=== PATIENT | female | born 1955 | race Caucasian/White ===

== ENCOUNTER 2023-01-18 18:58 | Observation (INO) ==
--- NOTE | 2023-01-18 19:39 | Emergency Department Note ---
History of Present Illness General Chief complaint: Fall Stated complaint: FALL,BRUISED RIB,HIT HEAD,WRIST PAIN Time Seen by Provider: 01/18/23 19:16 History of Present Illness Maximum Pain Intensity: 3 This is a 67-year-old female that presents to the emergency department via private vehicle with complaints of "fall, left anterior rib pain, struck head". The patient notes that earlier today she was at the [employer] football game. She was descending a flight of steps that were wet. She also believes her left boot shoestring was untied. She tripped and fell and then struck a hand rail and then struck her occipital region of the head against cement. She questions if perhaps she lost consciousness for a few seconds. She notes a headache and left anterior rib pain since that time. No vomiting. No vision change. The patient denies any chest pain or abdominal pain. No shortness of breath. Current pain 06/14. Patient denies any anticoagulant use. No aspirin use. She did take acetaminophen earlier today following the fall for pain. Home Medications Medication Instructions Recorded Confirmed Type buspirone 10 mg tablet 10 mg PO TID 01/19/23 01/19/23 History calcium citrate 315 mg 1 tab PO DAILY 01/19/23 01/19/23 History calcium-vitamin D3 6.25 mcg (250 unit) tablet (Citracal + Vitamin D Maximum) cholecalciferol (vitamin D3) 25 0 mcg PO DAILY 01/19/23 01/19/23 History mcg (1,000 unit) capsule (Vitamin D3) citalopram 40 mg tablet 40 mg PO DAILY 01/19/23 01/19/23 History clobetasol 0.05 % topical foam 1 applic topical DIRECTED PRN 01/19/23 01/19/23 History flare ups glucosamine 750 vr-[id number] 1 tab PO BID 01/19/23 01/19/23 History no1 644 mg-C 30 mg-rebeka 1 mg tablet (Osteo Bi-Flex Triple Strength) ketoconazole 2 % shampoo 1 applic topical 2XWK 01/19/23 01/19/23 History levothyroxine 88 mcg tablet 88 mcg PO DAILY 01/19/23 01/19/23 History (Synthroid) tacrolimus 0.03 % topical ointment 1 applic topical DIRECTED 01/19/23 01/19/23 History venlafaxine 75 mg capsule,extended 75 mg PO DAILY 01/19/23 01/19/23 History release 24 hr Allergies Allergy/AdvReac Type Severity Reaction Status Date / Time belladonna alkaloids AdvReac Dilates Verified 01/19/23 00:13 pupils Past Med/Surg History Medical History Anxiety Depression Hypothyroidism Surgical History Hx of appendectomy Hx of bilateral breast reduction surgery Hx of blepharoplasty Hx of sinus surgery Social History Smoking Status: Never smoker Hx Alcohol Use: Yes Alcohol type: wine Hx Substance Use: No Preferred Language: Ukrainian Communication Ability: Effective Beliefs That Will Affect Care: None Current Living Situation: Spouse Other Information That Helps Us Care for You: No Feels Safe at Home: Yes Assistive Devices: None Review of Systems A total of 10 systems reviewed and were otherwise negative Physical Exam Vital Signs Vital Signs - 24 hr 01/18/23 19:00 01/18/23 19:35 01/18/23 21:00 Temperature 35.8 C L Temperature Source Oral Pulse Rate 81 Pulse Rate [Right Finger] Pulse Rate from SpO2 Sensor Pulse Rhythm [Right Finger] Pulse Strength [Right Finger] Respiratory Rate 18 20 Respiratory Effort / Characteristics Non-Labored Non-Labored Respiratory Depth Normal Normal Normal Respiratory Pattern Regular Regular Blood Pressure 143/87 H Blood Pressure [Right Arm] Blood Pressure Mean 105 Blood Pressure Mean [Right Arm] Blood Pressure Position [Right Arm] Pulse Oximetry 96 100 Oxygen Delivery Method Room Air Room Air Room Air Sepsis Recent Fever Within 48 Hours No Sepsis New/Unexplained Change in Mental Status N/A Sepsis Action Taken by Nursing No Action Required 01/18/23 22:18 01/18/23 22:34 01/19/23 00:00 Temperature 36.6 C Temperature Source Oral Pulse Rate 75 Pulse Rate [Right Finger] 70 64 Pulse Rate from SpO2 Sensor Pulse Rhythm [Right Finger] Regular Pulse Strength [Right Finger] Normal Respiratory Rate 18 20 Respiratory Effort / Characteristics Non-Labored Spontaneous Respiratory Depth Normal Respiratory Pattern Regular Blood Pressure Blood Pressure [Right Arm] 130/80 132/73 Blood Pressure Mean Blood Pressure Mean [Right Arm] 96 92 Blood Pressure Position [Right Arm] Sitting Pulse Oximetry 98 97 Oxygen Delivery Method Room Air Room Air Sepsis Recent Fever Within 48 Hours Sepsis New/Unexplained Change in Mental Status Sepsis Action Taken by Nursing 01/18/23 22:33 01/18/23 22:40 01/18/23 22:50 Temperature Temperature Source Pulse Rate 69 74 69 Pulse Rate [Right Finger] Pulse Rate from SpO2 Sensor 69 74 69 Pulse Rhythm [Right Finger] Pulse Strength [Right Finger] Respiratory Rate 23 18 15 Respiratory Effort / Characteristics Respiratory Depth Respiratory Pattern Blood Pressure Blood Pressure [Right Arm] Blood Pressure Mean Blood Pressure Mean [Right Arm] Blood Pressure Position [Right Arm] Pulse Oximetry 97 98 96 Oxygen Delivery Method Sepsis Recent Fever Within 48 Hours Sepsis New/Unexplained Change in Mental Status Sepsis Action Taken by Nursing 01/18/23 23:00 01/18/23 23:00 01/18/23 23:10 Temperature Temperature Source Pulse Rate 72 73 Pulse Rate [Right Finger] Pulse Rate from SpO2 Sensor 72 73 Pulse Rhythm [Right Finger] Pulse Strength [Right Finger] Respiratory Rate 16 12 Respiratory Effort / Characteristics Respiratory Depth Respiratory Pattern Blood Pressure 128/81 Blood Pressure [Right Arm] Blood Pressure Mean 92 Blood Pressure Mean [Right Arm] Blood Pressure Position [Right Arm] Pulse Oximetry 96 97 Oxygen Delivery Method Sepsis Recent Fever Within 48 Hours Sepsis New/Unexplained Change in Mental Status Sepsis Action Taken by Nursing 01/18/23 23:20 01/18/23 23:30 01/18/23 23:30 Temperature Temperature Source Pulse Rate 75 81 Pulse Rate [Right Finger] Pulse Rate from SpO2 Sensor 74 78 Pulse Rhythm [Right Finger] Pulse Strength [Right Finger] Respiratory Rate 16 13 Respiratory Effort / Characteristics Respiratory Depth Respiratory Pattern Blood Pressure 129/70 Blood Pressure [Right Arm] Blood Pressure Mean 87 Blood Pressure Mean [Right Arm] Blood Pressure Position [Right Arm] Pulse Oximetry 96 94 Oxygen Delivery Method Sepsis Recent Fever Within 48 Hours Sepsis New/Unexplained Change in Mental Status Sepsis Action Taken by Nursing 01/18/23 23:40 01/18/23 23:50 01/19/23 00:00 Temperature Temperature Source Pulse Rate 78 65 Pulse Rate [Right Finger] Pulse Rate from SpO2 Sensor 77 65 Pulse Rhythm [Right Finger] Pulse Strength [Right Finger] Respiratory Rate 20 16 Respiratory Effort / Characteristics Respiratory Depth Respiratory Pattern Blood Pressure 132/73 Blood Pressure [Right Arm] Blood Pressure Mean 92 Blood Pressure Mean [Right Arm] Blood Pressure Position [Right Arm] Pulse Oximetry 98 96 Oxygen Delivery Method Sepsis Recent Fever Within 48 Hours Sepsis New/Unexplained Change in Mental Status Sepsis Action Taken by Nursing 01/19/23 00:00 01/19/23 00:10 01/19/23 00:20 Temperature Temperature Source Pulse Rate 60 68 66 Pulse Rate [Right Finger] Pulse Rate from SpO2 Sensor 61 68 66 Pulse Rhythm [Right Finger] Pulse Strength [Right Finger] Respiratory Rate 15 19 14 Respiratory Effort / Characteristics Respiratory Depth Respiratory Pattern Blood Pressure Blood Pressure [Right Arm] Blood Pressure Mean Blood Pressure Mean [Right Arm] Blood Pressure Position [Right Arm] Pulse Oximetry 95 95 96 Oxygen Delivery Method Sepsis Recent Fever Within 48 Hours Sepsis New/Unexplained Change in Mental Status Sepsis Action Taken by Nursing 01/19/23 00:30 01/19/23 00:30 01/19/23 00:40 Temperature Temperature Source Pulse Rate 66 71 Pulse Rate [Right Finger] Pulse Rate from SpO2 Sensor 65 71 Pulse Rhythm [Right Finger] Pulse Strength [Right Finger] Respiratory Rate 17 15 Respiratory Effort / Characteristics Respiratory Depth Respiratory Pattern Blood Pressure 113/73 Blood Pressure [Right Arm] Blood Pressure Mean 79 Blood Pressure Mean [Right Arm] Blood Pressure Position [Right Arm] Pulse Oximetry 96 95 Oxygen Delivery Method Sepsis Recent Fever Within 48 Hours Sepsis New/Unexplained Change in Mental Status Sepsis Action Taken by Nursing 01/19/23 00:52 01/19/23 01:00 01/19/23 01:00 Temperature Temperature Source Pulse Rate 82 65 Pulse Rate [Right Finger] Pulse Rate from SpO2 Sensor 82 64 Pulse Rhythm [Right Finger] Pulse Strength [Right Finger] Respiratory Rate 16 13 Respiratory Effort / Characteristics Respiratory Depth Respiratory Pattern Blood Pressure 117/81 Blood Pressure [Right Arm] Blood Pressure Mean 84 Blood Pressure Mean [Right Arm] Blood Pressure Position [Right Arm] Pulse Oximetry 95 96 Oxygen Delivery Method Sepsis Recent Fever Within 48 Hours Sepsis New/Unexplained Change in Mental Status Sepsis Action Taken by Nursing 01/19/23 01:10 01/19/23 01:20 01/19/23 01:30 Temperature Temperature Source Pulse Rate 68 Pulse Rate [Right Finger] Pulse Rate from SpO2 Sensor 68 77 Pulse Rhythm [Right Finger] Pulse Strength [Right Finger] Respiratory Rate 17 Respiratory Effort / Characteristics Respiratory Depth Respiratory Pattern Blood Pressure 133/81 Blood Pressure [Right Arm] Blood Pressure Mean 102 Blood Pressure Mean [Right Arm] Blood Pressure Position [Right Arm] Pulse Oximetry 96 97 Oxygen Delivery Method Sepsis Recent Fever Within 48 Hours Sepsis New/Unexplained Change in Mental Status Sepsis Action Taken by Nursing 01/19/23 01:30 Temperature Temperature Source Pulse Rate Pulse Rate [Right Finger] Pulse Rate from SpO2 Sensor 71 Pulse Rhythm [Right Finger] Pulse Strength [Right Finger] Respiratory Rate Respiratory Effort / Characteristics Respiratory Depth Respiratory Pattern Blood Pressure Blood Pressure [Right Arm] Blood Pressure Mean Blood Pressure Mean [Right Arm] Blood Pressure Position [Right Arm] Pulse Oximetry 95 Oxygen Delivery Method Sepsis Recent Fever Within 48 Hours Sepsis New/Unexplained Change in Mental Status Sepsis Action Taken by Nursing VITAL SIGNS - Vital signs and nursing notes were reviewed. Stable. GENERAL - 67-year-old female appearing her stated age. Communicates well with provider and answers questions appropriately. SKIN - Gross examination of the entire body surface demonstrates no lacerations to the body surface. HEAD - Normocephalic. No Palafox's Sign or Raccoon's Eyes. No depressed skull fractures palpable. EYES - PERRL with EOMI bilaterally. Without subconjunctival hemorrhage. Palpebral conjunctiva pink and moist with no injection. EARS - No deformities of external structures noted on gross examination bilaterally. No hemotympanum present. No tympanic perforation noted. Handle of malleus, umbo, cone of light, pars tensa/flaccid all easily visualized. NOSE - Midline and without cyanosis. No epistaxis or clear watery discharge noted. Septum midline without deviation. No septal hematoma noted. No overlying ecchymosis noted. MOUTH/OROPHARYNX - Without perioral cyanosis. Tongue midline with equal elevation of palate bilaterally. No blood noted in the oropharynx. No tonsillar hypertrophy, erythema, or exudates noted. No dental fractures noted. NECK - No tenderness to palpation over the cervical spinous processes. No cervical paraspinal muscle tenderness noted. LUNGS - Chest wall symmetric without accessory muscle use, intercostals ret ractions, or central cyanosis. No flail chest or depressed fractures noted. No paradoxical chest wall movements noted. L anterior rib TTP noted. Normal vesicular breath sounds CTA B/L. No wheezes, rales, or rhonchi appreciated. CARDIAC - RRR with S1/S2. No murmur, rubs, or gallops appreciated. ABDOMEN - Abdominal contour normal and without pulsations or visible masses. BS normoactive all four quadrants. No rebound tenderness or guarding noted. Negative [place]'s or Moise Fowler's Signs. No tenderness, palpable masses, hepatosplenomegaly, or ascites noted. EXTREMITIES - No gross deformities noted of the extremities. No tenderness to palpation upper or lower extremities. +5/5 strength noted in UE/LE bilaterally. NEUROLOGIC - Cranial nerves II through XII grossly intact. PSYCH - A&O, and cooperates fully with examiner. Pt is very pleasant and interacts well with examiner. Course Administered Medications Discontinued Medications Acetaminophen (Acetaminophen 325 Mg Tab) 650 mg PO NOW STA Stop: 01/19/23 01:44 Last Admin: 01/19/23 02:10 Dose: 650 mg Documented By: PEPPER Acetaminophen (Acetaminophen 325 Mg Tab) 650 mg PO Q4H PRN PRN Reason: Pain or Fever Stop: 02/18/23 04:13 Last Admin: 01/19/23 07:36 Dose: 650 mg Documented By: AGATA Buspirone HCl (Buspirone 5 Mg Tab) 10 mg PO TID BHARAT Stop: 02/18/23 08:59 Last Admin: 01/19/23 09:12 Dose: 10 mg Documented By: AGATA Calcium/Vitamin D (Calcium 600mg + Vit D 400 Iu Tab) 1 tab PO DAILY BHARAT Stop: 02/18/23 08:59 Last Admin: 01/19/23 09:12 Dose: 1 tab Documented By: AGATA Citalopram Hydrobromide (Citalopram 40 Mg Tab) 40 mg PO DAILY BHARAT Stop: 02/18/23 08:59 Last Admin: 01/19/23 09:30 Dose: Not Given Documented By: AGATA Fluticasone Propionate (Fluticasone Propionate Na Spr 16 Gm Btl) 1 sprays NA NOW STA Stop: 01/19/23 01:06 Last Admin: 01/19/23 01:41 Dose: 1 sprays Documented By: PEPPER Sodium Chloride (Nss) 1,000 mls @ 80 mls/hr IV .[id number] BHARAT Stop: 01/19/23 16:43 Last Admin: 01/19/23 04:42 Dose: 80 mls/hr Documented By: HERIBERTO Levothyroxine Sodium (Levothyroxine Sodium 88 Mcg Tablet) 88 mcg PO DAILYBB BHARAT Stop: 02/18/23 06:29 Last Admin: 01/19/23 07:33 Dose: 88 mcg Documented By: AGATA Venlafaxine HCl (Venlafaxine Hcl Xr 75 Mg Capxr) 75 mg PO DAILY BHARAT Stop: 02/18/23 08:59 Last Admin: 01/19/23 09:12 Dose: 75 mg Documented By: AGATA Medical Decision Making Laboratory Data 01/18/23 22:20 01/18/23 22:20 Lab Results 01/18/23 01/18/23 01/18/23 Range/Units 22:20 22:20 22:20 WBC 6.93 (4.8-10.8) K/ul RBC 4.34 (4.20-5.40) M/uL Hgb 13.2 (12.0-16.0) g/dl Hct 39.0 (37.0-47.0) % MCV 89.9 (80.0-100.0) fL MCH 30.4 (25.0-34.0) pg MCHC 33.8 (32.0-36.0) g/dL RDW Std Deviation 39.4 (36.4-46.3) fL RDW Coeff of [place] 12.0 (11.5-14.5) % Plt Count 288 (130-400) K/uL MPV 10.1 (9.4-12.4) fL Immature Gran % (Auto) 0.3 % Neut % (Auto) 71.7 % Lymph % (Auto) 16.5 % [place] % (Auto) 8.7 % Eos % (Auto) 2.5 % Baso % (Auto) 0.3 % Neut # (Auto) 4.98 (1.40-6.50) K/uL Lymph # (Auto) 1.14 L (1.20-3.40) K/uL [place] # (Auto) 0.60 H (0.11-0.59) K/uL Eos # (Auto) 0.17 (0.00-0.50) K/uL Baso # (Auto) 0.02 (0.00-0.20) K/uL Immature Gran # (Auto) 0.02 (0.01-0.20) K/uL PT 10.8 (9.0-12.0) Seconds INR 1.0 (0.9-1.1) APTT 27.8 (21.0-31.0) Seconds PTT Ratio 1.0 Sodium 140 (136-145) mmol/L Potassium 4.2 (3.5-5.1) mmol/L Chloride 104 (98-107) mmol/L Carbon Dioxide 30 (21-32) mmol/L Anion Gap 6 (3-11) BUN 22 (6-23) mg/dl Creatinine 1.01 (0.6-1.2) mg/dl Est Cr Clr Drug Dosing 52.6 ml/min Est GFR ( Amer) 66.7 ml/min Est GFR (Non-Af Amer) 57.6 ml/min BUN/Creatinine Ratio 21.8 H (10-20) Glucose 91 (70-99(Fasting)) mg/dl Calcium 10.2 (8.6-10.3) mg/dl Total Bilirubin 0.4 (0.2-1.0) mg/dl AST 18 (13-39) U/L ALT 11 (7-52) U/L Alkaline Phosphatase 72 (34-104) U/L Total Protein 6.8 (6.0-8.3) gm/dl Albumin 4.3 (3.4-5.0) gm/dl Globulin 2.5 (2.5-4.0) gm/dl Albumin/Globulin Ratio 1.7 (0.9-2) Imaging Data Radiologist's Impression: Cervical Spine CT 01/18/23 19:34 Exam(s): CT C SPINE EXAM: CT Cervical Spine Without Intravenous Contrast CLINICAL HISTORY: Reason for exam: fall, struck head. TECHNIQUE: Axial computed tomography images of the cervical spine without intravenous contrast. CTDI is 23.87 mGy and DLP is 474.64 mGy-cm. Automated exposure control was utilized for the study. A dose lowering technique was utilized adhering to the principles of ALARA. COMPARISON: No relevant prior studies available. FINDINGS: The vertebral body heights are maintained. The craniocervical junction is intact. The atlanto-dens interval is maintained. The dens is intact. There is no spondylolisthesis. Multilevel cervical spondylosis and degenerative disc disease. Straightening of the cervical lordosis. The unenhanced neck soft tissues are grossly unremarkable. The visualized lung apices are grossly clear. IMPRESSION: No acute fracture or subluxation of the cervical spine. Electronically signed by: Isidoro Rincon MD 01/18/23 21:[address] 01/18/23 19:34 CR Exam(s): CT HEAD Without Contrast EXAM: CT Head Without Intravenous Contrast CLINICAL HISTORY: Reason for exam: fall, struck head. TECHNIQUE: Axial computed tomography images of the head/brain without intravenous contrast. CTDI is 35.65 mGy and DLP is 624.41 mGy-cm. Automated exposure control was utilized for the study. A dose lowering technique was utilized adhering to the principles of ALARA. COMPARISON: No relevant prior studies available. FINDINGS: Trace subdural blood along the anterior falx, measuring approximately 3 mm. The territorial josé-white matter differentiation is maintained throughout. Age-related cerebral volume loss. Periventricular and subcortical white matter hypoattenuation, consistent with chronic microangiopathy. The visualized orbits appear grossly unremarkable. The calvarium is intact. The visualized paranasal sinuses and mastoid air cells are grossly clear. IMPRESSION: Trace subdural blood along the anterior falx, measuring approximately 3 mm. Communications: Call Doctor Other Electronically signed by: Isidoro Rincon MD 01/18/23 21:44 PM Ribs w/Chest X-Ray 01/18/23 19:34 XR ribs LT min 2V w [id number] CLINICAL HISTORY: Fall, L anterior/lateral rib pain TECHNIQUE: 3 views of the left ribs were obtained. Single frontal view of the chest was obtained. Comparison: None available at the time of this dictation. FINDINGS: No fractures are seen. The chest wall and soft tissues are normal. No lines and tubes are seen. The cardiomediastinal silhouette is normal. The lungs are clear. No evidence of pleural effusion or pneumothorax. Degenerative changes are seen with S-shaped scoliosis partially visualized. IMPRESSION: No evidence of acute fracture or other acute abnormalities in the visualized portions of the chest. ACT 112: Negative or not required by law. Electronically signed by: Rafita Munson M.D. 01/18/2023 8:[address] 01/18/23 20:14 Exam(s): CT CHEST Without Contrast EXAM: CT Chest Without Intravenous Contrast CLINICAL HISTORY: Reason for exam: Fall, Left anterior inferior rib pain. TECHNIQUE: Axial computed tomography images of the chest without intravenous contrast. CTDI is 23.87 mGy and DLP is 474.64 mGy-cm. Automated exposure control was utilized for the study. A dose lowering technique was utilized adhering to the principles of ALARA. COMPARISON: No relevant prior studies available. FINDINGS: Lungs: Unremarkable. No mass. No consolidation. Pleural space: Unremarkable. No pneumothorax. No significant effusion. Heart: Unremarkable. No cardiomegaly. No significant pericardial effusion. No significant coronary artery calcifications. Bones/joints: Unremarkable. No acute fracture. No dislocation. Soft tissues: Unremarkable. Vasculature: Unremarkable. No thoracic aortic aneurysm. Lymph nodes: Unremarkable. No enlarged lymph nodes. Other findings: Nonobstructed calculi in the LEFT upper pole, partially included in the [id number]. IMPRESSION: No acute findings in the chest. Electronically signed by: Isidoro Rincon MD 01/18/23 21:52 PM MDM Narrative Patient was seen and evaluated as above in room D03a. Review was performed of triage nursing notes and vital signs. No previous visits for review in the EMR at time of evaluation. After obtaining a thorough history and physical examination the above work up was performed. Patient presents to us today status post fall down steps while at [facility] during the [employer] football game. She believes she slipped on the wet steps and also because the shoelace on the left boot was untied. She notes that she fell and struck the occipital region of the head against cement. She questions perhaps brief loss of consciousness. No anticoagulant use. No antiplatelet use. No aspirin use. The patient has had a headache since then and some left anterior rib pain. She notes a history of recent left rib injury a few weeks ago and this seemed to have aggravated the left rib pain. Options of care were discussed with the patient. CT imaging of the head, neck were obtained as well as chest x-ray with rib series. Rib series without definitive fracture. Chest CT added. CT head reveals what appears to be trace subdural blood along the anterior falx, measuring approximately 3 mm. The radiologist did call me regarding these findings. This may be artifactual but in the setting of trauma, at this time we will proceed with management as if it were a true finding. We do not have neurosurgery here at our facility therefore contacted [facility]. 10:20pm: I spoke with both neurosurgery and trauma surgery at [facility] via conference phone call. I spoke with Dr. Monaco (neurosurgery) and Dr. Cole (Trauma). We discussed plan of care. We discussed keeping the patient here and repeating a head CT versus transfer down to their facility for repeat head CT and monitoring. I did ask our radiology service to forward the imaging to the life image radiology service to be viewed at [facility] however it appears in talking with the specialists at [facility], they were not able to see the images. Neurosurgery was comfortable with the plan of watching the patient and repeating the head CT here but did have trauma weigh in on the decision as well. Dr. Cole from trauma did offer to have the patient down at his facility for assessment but noted that if we are comfortable here it would be ultimately our decision if we want to watch the patient here vs transfer. Keppra x7 days was also recommended. I presented these options and recommendations to the patient. The patient would prefer to stay here at this facility which I believe is reasonable. In addition, in discussing the keppra, the patient would like to hold off on Keppra at this time pending repeat imaging which I also believe is reasonable. Furthermore, I did speak with the hospitalist (Dr. Tyler) regarding the case and he did asked that I speak to neurology at our facility first. I then spoke to Dr. Paige of neurology at 11:32 PM on 01/18/2023. We will proceed with hospitalist admission here, repeat head CT, watch the patient/clinically trend symptoms and if she worsens she will be transferred to tertiary care. Dr. Tyler then talked to the [facility] ospitalist service here and they will now admit the patient here for continuity of care. I then spoke to Dr. Davis who with the [facility] hospitalist service regarding the case. Please refer to further documentation regarding her stay. Patient did ask for fluticasone nasal spray which was added. GCS: 15 In the evaluation and treatment of this patient the following differential diagnoses were entertained: Acute intracranial hemorrhage, skull fracture, contusion, C-spine fracture, rib fracture, pneumothorax, hemothorax, among others Impression & Plan Fall, Subdural hematoma, Headache, Rib pain on left side Discharge Plan Visit Data Chief Complaint: Fall Stated Complaint: FALL,BRUISED RIB,HIT HEAD,WRIST PAIN ED Provider: Manuel Ortiz ED Midlevel Provider: Luis Eduardo Reeves Discharge Problem: Fall, Subdural hematoma, Headache, Rib pain on left side Patient Disposition: Admitted As Inpatient Condition: Good Discharge Instructions Interventions: ED Discharge Assessment Last Done: 01/19/23 03:53
--- NOTE | 2023-01-18 20:08 | Emergency Department Note ---
ED Visit Note I was consulted by the Advanced Practice Provider. I discussed the case and the patient's complaints at length with the ERNESTO. CT imaging of the head, chest and neck have been ordered. Results currently pending. .
--- NOTE | 2023-01-18 20:17 | XRay Report ---
XR ribs LT min 2V w CXR1V CLINICAL HISTORY: Fall, L anterior/lateral rib pain TECHNIQUE: 3 views of the left ribs were obtained. Single frontal view of the chest was obtained. Comparison: None available at the time of this dictation. FINDINGS: No fractures are seen. The chest wall and soft tissues are normal. No lines and tubes are seen. The cardiomediastinal silhouette is normal. The lungs are clear. No evid ence of pleural effusion or pneumothorax. Degenerative changes are seen with S-shaped scoliosis parti ally visualized. IMPRESSION: No evidence of acute fracture or other acute abnormalities in the visualized portions of the chest. ACT 112: Negative or not required by law. Electronically signed by: Rafita Munson M.D. 01/18/2023 8:16 PM
--- NOTE | 2023-01-18 21:44 | CT Scan Report ---
Exam(s): CT C SPINE EXAM: CT Cervical Spine Without Intravenous Contrast CLINICAL HISTORY: Reason for exam: fall, struck head. TECHNIQUE: Axial computed tomography images of the cervical spine without intravenous contrast. CTDI is 23.87 mGy and DLP is 474.64 mGy-cm. Automated exposure control was utilized for the study. A dose lowering technique was utilized adhering to the principles of ALARA. COMPARISON: No relevant prior studies available. FINDINGS: The vertebral body heights are maintained. The craniocervical junction is intact. The atlanto-dens interval is maintained. The dens is intact. There is no spondylolisthesis. Multilevel cervical spondylosis and degenerative disc disease. Straightening of the cervical lordosis. The unenhanced neck soft tissues are grossly unremarkable. The visualized lung apices are grossly clear. IMPRESSION: No acute fracture or subluxation of the cervical spine. Electronically signed by: Isidoro Rincon MD 01/18/23 21:42 PM
--- NOTE | 2023-01-18 21:45 | CT Scan Report ---
Exam(s): CT HEAD Without Contrast EXAM: CT Head Without Intravenous Contrast CLINICAL HISTORY: Reason for exam: fall, struck head. TECHNIQUE: Axial computed tomography images of the head/brain without intravenous contrast. CTDI is 35.65 mGy and DLP is 624.41 mGy-cm. Automated exposure control was utilized for the study. A dose lowering technique was utilized adhering to the principles of ALARA. COMPARISON: No relevant prior studies available. FINDINGS: Trace subdural blood along the anterior falx, measuring approximately 3 mm. The territorial josé-white matter differentiation is maintained throughout. Age-related cerebral volume loss. Periventricular and subcortical white matter hypoattenuation, consistent with chronic microangiopathy. The visualized orbits appear grossly unremarkable. The calvarium is intact. The visualized paranasal sinuses and mastoid air cells are grossly clear. IMPRESSION: Trace subdural blood along the anterior falx, measuring approximately 3 mm. Communications: Call Doctor Other Electronically signed by: Isidoro Rincon MD 01/18/23 21:44 PM
--- NOTE | 2023-01-18 21:54 | CT Scan Report ---
Exam(s): CT CHEST Without Contrast EXAM: CT Chest Without Intravenous Contrast CLINICAL HISTORY: Reason for exam: Fall, Left anterior inferior rib pain. TECHNIQUE: Axial computed tomography images of the chest without intravenous contrast. CTDI is 23.87 mGy and DLP is 474.64 mGy-cm. Automated exposure control was utilized for the study. A dose lowering technique was utilized adhering to the principles of ALARA. COMPARISON: No relevant prior studies available. FINDINGS: Lungs: Unremarkable. No mass. No consolidation. Pleural space: Unremarkable. No pneumothorax. No significant effusion. Heart: Unremarkable. No cardiomegaly. No significant pericardial effusion. No significant coronary artery calcifications. Bones/joints: Unremarkable. No acute fracture. No dislocation. Soft tissues: Unremarkable. Vasculature: Unremarkable. No thoracic aortic aneurysm. Lymph nodes: Unremarkable. No enlarged lymph nodes. Other findings: Nonobstructed calculi in the LEFT upper pole, partially included in the [id number]. IMPRESSION: No acute findings in the chest. Electronically signed by: Isidoro Rincon MD 01/18/23 21:52 PM
[2023-01-18 22:39] LABS: Basophils # (auto) 0.02 K/uL (0.00-0.20); Basophils % (auto) 0.3 %; Eosinophils # (auto) 0.17 K/uL (0.00-0.50); Eosinophils % (auto) 2.5 %; Hemoglobin 13.2 g/dl (12.0-16.0); Immature Granulocytes # (auto) 0.02 K/uL (0.01-0.20); Immature Granulocytes % (auto) 0.3 %; Lymphocytes # (auto) 1.14 K/uL (1.20-3.40); Lymphocytes % (auto) 16.5 %; Mean Corpuscular Hemoglobin 30.4 pg (25.0-34.0); Mean Corpuscular Hgb Conc 33.8 g/dL (32.0-36.0); Mean Corpuscular Volume 89.9 fL (80.0-100.0); Mean Platelet Volume 10.1 fL (9.4-12.4); Monocytes % (auto) 8.7 %; Neutrophils # (auto) 4.98 K/uL (1.40-6.50); Neutrophils % (auto) 71.7 %; Platelet Count 288 K/uL (130-400); RDW Standard Deviation 39.4 fL (36.4-46.3); Red Blood Count 4.34 M/uL (4.20-5.40); White Blood Count 6.93 K/ul (4.8-10.8)
[2023-01-18 22:50] LABS: Albumin Globulin Ratio 1.7 (0.9-2); Albumin Level 4.3 gm/dl (3.4-5.0); BUN Creatinine Ratio 21.8 (10-20); Bilirubin,Total 0.4 mg/dl (0.2-1.0); Calcium 10.2 mg/dl (8.6-10.3); Creatinine Clr Calc Pharmacy 52.6 ml/min; Est GFR (African American) 66.7 ml/min; Est GFR (Non-African American) 57.6 ml/min; Globulin 2.5 gm/dl (2.5-4.0); Potassium 4.2 mmol/L (3.5-5.1); Total Protein 6.8 gm/dl (6.0-8.3)
[2023-01-18 23:06] LABS: Partial Thromboplastin Time 27.8 Seconds (21.0-31.0); Prothrombin Time 10.8 Seconds (9.0-12.0)
[2023-01-19] MEDS ORDERED: FLUTICASONE PROPIONATE NA SPR 16 GM BTL STA (01:05)
[2023-01-19] MEDS ORDERED: ACETAMINOPHEN 325 MG TAB PO STA (01:43)
--- NOTE | 2023-01-19 01:53 | History & Physical Report ---
Date of Service January 19, 2023 Assessment & Plan (1) Subdural hematoma: Plan: 67-year-old female with past medical significant for hypothyroidism, osteoarthritis, depression and anxiety sleep apnea and uses dental device visiting [place] for football match comes because of fall and found to have subdural hematoma. Fall Subdural hematoma CT head: Trace subdural blood along the anterior falx, measuring approximately 3 mm. ER spoke with neurosurgery at [place] and also trauma center [place] and and finally decided to be observed here We will follow repeat CT head in a.m. Hemodynamically stable Not on anticoagulations [place] recommended Keppra 500 twice daily for 1 week but patient want to wait until repeat CT head in a.m. Monitor in telemetry floor History of anxiety depression Continue home medication Hypothyroidism On Synthyroid DVT prophylax SCDs Disposition admit telemetry floor Full code History of Present Illness Chief Complaint: Fall and subdural hematoma Primary Care Provider: NO PCP 67-year-old female with past medical significant for hypothyroidism, osteo arthritis, depression and anxiety and sleep apnea and uses dental device visiting [place] for football match comes because of fall and found to have subdural hematoma. It seems it was wet and she slipped on the steps hit the rail and seem to hit concrete the back of the head.Patient thinks probably she might lost conscious for 2 to 3 seconds. She was able to walk in the parking lot and drove here. The headache is coming back. No blurred visions. No dizziness. No nausea vomiting. No cough. No recent fevers. Has right lower rib pains. No shortness of breath. No abdominal pain. Normal bowel and bladder movements. Past medical history as mentioned above. Past surgical history. Sinus surgery. Chin lift surgery. Breast reduction surgery. Appendectomy, knee gel shots for osteoarthritis, and spinal shots. Social history. . No smoking. Alcohol occasional. Family history. Mother and father had high blood pressure high cholesterol and diabetes. Mother of lung cancer. Father had heart disease Allergies Allergy/AdvReac Type Severity Reaction Status Date / Time belladonna alkaloids AdvReac Dilates Verified 01/19/23 00:13 pupils Home Medications Medication Instructions Recorded Confirmed Type buspirone 10 mg tablet 10 mg PO TID 01/19/23 01/19/23 History calcium citrate 315 mg 1 tab PO DAILY 01/19/23 01/19/23 History calcium-vitamin D3 6.25 mcg (250 unit) tablet (Citracal + Vitamin D Maximum) cholecalciferol (vitamin D3) 25 0 mcg PO DAILY 01/19/23 01/19/23 History mcg (1,000 unit) capsule (Vitamin D3) citalopram 40 mg tablet 40 mg PO DAILY 01/19/23 01/19/23 History clobetasol 0.05 % topical foam 1 applic topical DIRECTED PRN 01/19/23 01/19/23 History flare ups glucosamine 750 cj-[id number]-[id number] 1 tab PO BID 01/19/23 01/19/23 History no1 644 mg-C 30 mg-rebeka 1 mg tablet (Osteo Bi-Flex Triple Strength) ketoconazole 2 % shampoo 1 applic topical 2XWK 01/19/23 01/19/23 History levothyroxine 88 mcg tablet 88 mcg PO DAILY 01/19/23 01/19/23 History (Synthroid) tacrolimus 0.03 % topical ointment 1 applic topical DIRECTED 01/19/23 01/19/23 History venlafaxine 75 mg capsule,extended 75 mg PO DAILY 01/19/23 01/19/23 History release 24 hr Past Med/Surg History Medical History Anxiety Depression Hypothyroidism Surgical History Hx of appendectomy Hx of bilateral breast reduction surgery Hx of blepharoplasty Hx of sinus surgery Social History Smoking Status: Never smoker Hx Alcohol Use: Yes Alcohol type: wine Hx Substance Use: No Preferred Language: German Communication Ability: Effective Beliefs That Will Affect Care: None Current Living Situation: Spouse Other Information That Helps Us Care for You: No Feels Safe at Home: Yes Assistive Devices: None Review of Systems Review of Systems: All systems reviewed & are unremarkable except as noted in HPI & below Physical Exam Physical Exam: General- Not in distress. Head- atraumatic Eyes- PERRL. ENT- oropharynx clear Neck- supple, no JVD, Lungs- clear to auscultation no wheezing or crackles Heart- regular rhythm; no murmur, no gallop, Abdomen- normal bowel sounds, soft, nontender, no distension. Extremities- no pretibial edema, no erythema Neuro- alert, oriented x 3; PERRL, EOMI; no facial palsy; no dysarthria; motor 5/5 bilaterally; Skin- warm & dry Results & Data Results & Data Vital Signs (Past 12 Hours) Vital Signs Temp Pulse Pulse Resp BP BP Pulse Ox 01/19/23 00:00 64 20 132/73 97 01/18/23 22:34 75 01/18/23 22:18 36.6 C 70 18 130/80 98 01/18/23 21:00 20 100 01/18/23 19:35 01/18/23 19:00 35.8 C L 81 18 143/87 H 96 O2 Del Method 01/19/23 00:00 Room Air 01/18/23 22:34 01/18/23 22:18 Room Air 01/18/23 21:00 Room Air 01/18/23 19:35 Room Air 01/18/23 19:00 Room Air Diagnostic Findings Laboratory Results WBC 6.93 K/ul (4.8-10.8) 01/18/23 22:20 RBC 4.34 M/uL (4.20-5.40) 01/18/23 22:20 Hgb 13.2 g/dl (12.0-16.0) 01/18/23 22:20 Hct 39.0 % (37.0-47.0) 01/18/23 22:20 MCV 89.9 fL (80.0-100.0) 01/18/23 22:20 MCH 30.4 pg (25.0-34.0) 01/18/23 22:20 MCHC 33.8 g/dL (32.0-36.0) 01/18/23 22:20 RDW Std Deviation 39.4 fL (36.4-46.3) 01/18/23 22:20 RDW Coeff of [place] 12.0 % (11.5-14.5) 01/18/23 22:20 Plt Count 288 K/uL (130-400) 01/18/23 22:20 MPV 10.1 fL (9.4-12.4) 01/18/23 22:20 Immature Gran % (Auto) 0.3 % 01/18/23 22:20 Neut % (Auto) 71.7 % 01/18/23 22:20 Lymph % (Auto) 16.5 % 01/18/23 22:20 [place] % (Auto) 8.7 % 01/18/23 22:20 Eos % (Auto) 2.5 % 01/18/23 22:20 Baso % (Auto) 0.3 % 01/18/23 22:20 Neut # (Auto) 4.98 K/uL (1.40-6.50) 01/18/23 22:20 Lymph # (Auto) 1.14 K/uL (1.20-3.40) L 01/18/23 22:20 [place] # (Auto) 0.60 K/uL (0.11-0.59) H 01/18/23 22:20 Eos # (Auto) 0.17 K/uL (0.00-0.50) 01/18/23 22:20 Baso # (Auto) 0.02 K/uL (0.00-0.20) 01/18/23 22:20 Immature Gran # (Auto) 0.02 K/uL (0.01-0.20) 01/18/23 22:20 PT 10.8 Seconds (9.0-12.0) 01/18/23 22:20 INR 1.0 (0.9-1.1) 01/18/23 22:20 APTT 27.8 Seconds (21.0-31.0) 01/18/23 22:20 PTT Ratio 1.0 01/18/23 22:20 Sodium 140 mmol/L (136-145) 01/18/23 22:20 Potassium 4.2 mmol/L (3.5-5.1) 01/18/23 22:20 Chloride 104 mmol/L (98-107) 01/18/23 22:20 Carbon Dioxide 30 mmol/L (21-32) 01/18/23 22:20 Anion Gap 6 (3-11) 01/18/23 22:20 BUN 22 mg/dl (6-23) 01/18/23 22:20 Creatinine 1.01 mg/dl (0.6-1.2) 01/18/23 22:20 Est Cr Clr Drug Dosing 52.6 ml/min 01/18/23 22:20 Est GFR ( Amer) 66.7 ml/min 01/18/23 22:20 Est GFR (Non-Af Amer) 57.6 ml/min 01/18/23 22:20 BUN/Creatinine Ratio 21.8 (10-20) H 01/18/23 22:20 Glucose 91 mg/dl (70-99(Fasting)) 01/18/23 22:20 Calcium 10.2 mg/dl (8.6-10.3) 01/18/23 22:20 Total Bilirubin 0.4 mg/dl (0.2-1.0) 01/18/23 22:20 AST 18 U/L (13-39) 01/18/23 22:20 ALT 11 U/L (7-52) 01/18/23 22:20 Alkaline Phosphatase 72 U/L (34-104) 01/18/23 22:20 Total Protein 6.8 gm/dl (6.0-8.3) 01/18/23 22:20 Albumin 4.3 gm/dl (3.4-5.0) 01/18/23 22:20 Globulin 2.5 gm/dl (2.5-4.0) 01/18/23 22:20 Albumin/Globulin Ratio 1.7 (0.9-2) 01/18/23 22:[address] 01/18/23 19:34 Exam(s): CT C SPINE EXAM: CT Cervical Spine Without Intravenous Contrast CLINICAL HISTORY: Reason for exam: fall, struck head. TECHNIQUE: Axial computed tomography images of the cervical spine without intravenous contrast. CTDI is 23.87 mGy and DLP is 474.64 mGy-cm. Automated exposure control was utilized for the study. A dose lowering technique was utilized adhering to the principles of ALARA. COMPARISON: No relevant prior studies available. FINDINGS: The vertebral body heights are maintained. The craniocervical junction is intact. The atlanto-dens interval is maintained. The dens is intact. There is no spondylolisthesis. Multilevel cervical spondylosis and degenerative disc disease. Straightening of the cervical lordosis. The unenhanced neck soft tissues are grossly unremarkable. The visualized lung apices are grossly clear. IMPRESSION: No acute fracture or subluxation of the cervical spine. Electronically signed by: Isidoro Rincon MD 01/18/23 21:[address] 01/18/23 19:34 CR Exam(s): CT HEAD Without Contrast EXAM: CT Head Without Intravenous Contrast CLINICAL HISTORY: Reason for exam: fall, struck head. TECHNIQUE: Axial computed tomography images of the head/brain without intravenous contrast. CTDI is 35.65 mGy and DLP is 624.41 mGy-cm. Automated exposure control was utilized for the study. A dose lowering technique was utilized adhering to the principles of ALARA. COMPARISON: No relevant prior studies available. FINDINGS: Trace subdural blood along the anterior falx, measuring approximately 3 mm. The territorial josé-white matter differentiation is maintained throughout. Age-related cerebral volume loss. Periventricular and subcortical white matter hypoattenuation, consistent with chronic microangiopathy. The visualized orbits appear grossly unremarkable. The calvarium is intact. The visualized paranasal sinuses and mastoid air cells are grossly clear. IMPRESSION: Trace subdural blood along the anterior falx, measuring approximately 3 mm. Communications: Call Doctor Other Electronically signed by: Isidoro Rincon MD 01/18/23 21:44 PM Ribs w/Chest X-Ray 01/18/23 19:34 XR ribs LT min 2V w CXR1V CLINICAL HISTORY: Fall, L anterior/lateral rib pain TECHNIQUE: 3 views of the left ribs were obtained. Single frontal view of the chest was obtained. Comparison: None available at the time of this dictation. FINDINGS: No fractures are seen. The chest wall and soft tissues are normal. No lines and tubes are seen. The cardiomediastinal silhouette is normal. The lungs are clear. No evidence of pleural effusion or pneumothorax. Degenerative changes are seen with S-shaped scoliosis partially visualized. IMPRESSION: No evidence of acute fracture or other acute abnormalities in the visualized portions of the chest. ACT 112: Negative or not required by law. Electronically signed by: Rafita Munson M.D. 01/18/2023 8:[address] 01/18/23 20:14 Exam(s): CT CHEST Without Contrast EXAM: CT Chest Without Intravenous Contrast CLINICAL HISTORY: Reason for exam: Fall, Left anterior inferior rib pain. TECHNIQUE: Axial computed tomography images of the chest without intravenous contrast. CTDI is 23.87 mGy and DLP is 474.64 mGy-cm. Automated exposure control was utilized for the study. A dose lowering technique was utilized adhering to the principles of ALARA. COMPARISON: No relevant prior studies available. FINDINGS: Lungs: Unremarkable. No mass. No consolidation. Pleural space: Unremarkable. No pneumothorax. No significant effusion. Heart: Unremarkable. No cardiomegaly. No significant pericardial effusion. No significant coronary artery calcifications. Bones/joints: Unremarkable. No acute fracture. No dislocation. Soft tissues: Unremarkable. Vasculature: Unremarkable. No thoracic aortic aneurysm. Lymph nodes: Unremarkable. No enlarged lymph nodes. Other findings: Nonobstructed calculi in the LEFT upper pole, partially included in the [id number]. IMPRESSION: No acute findings in the chest. Electronically signed by: Isidoro Rincon MD 01/18/23 21:52 PM Code Status & VTE Plan VTE Prophylaxis Plan VTE Prophylaxis will be ordered: Yes
[2023-01-19] MEDS ORDERED: POLYETHYLENE (MIRALAX) 17 GM PACK PO PRN (04:14)
[2023-01-19] MEDS ORDERED: SODIUM CHLORIDE 0.9% 1,000 ML IV SCH (04:14)
[2023-01-19] MEDS ORDERED: ACETAMINOPHEN 325 MG TAB PO PRN (04:14)
[2023-01-19] MEDS ORDERED: NITROGLYCERIN SL 0.4 MG/TAB TAB SL PRN (04:14)
[2023-01-19] MEDS ORDERED: LEVOTHYROXINE SODIUM 88 MCG TABLET PO SCH (06:30)
[2023-01-19 06:45] LABS: Basophils # (auto) 0.02 K/uL (0.00-0.20); Basophils % (auto) 0.5 %; Eosinophils # (auto) 0.19 K/uL (0.00-0.50); Eosinophils % (auto) 4.4 %; Hematocrit (blood only) 34.5 % (37.0-47.0); Hemoglobin 11.7 g/dl (12.0-16.0); Immature Granulocytes # (auto) 0.01 K/uL (0.01-0.20); Immature Granulocytes % (auto) 0.2 %; Lymphocytes # (auto) 1.01 K/uL (1.20-3.40); Lymphocytes % (auto) 23.2 %; Mean Corpuscular Hemoglobin 30.6 pg (25.0-34.0); Mean Corpuscular Hgb Conc 33.9 g/dL (32.0-36.0); Mean Corpuscular Volume 90.3 fL (80.0-100.0); Monocytes # (auto) 0.56 K/uL (0.11-0.59); Monocytes % (auto) 12.8 %; Neutrophils # (auto) 2.57 K/uL (1.40-6.50); Neutrophils % (auto) 58.9 %; Platelet Count 238 K/uL (130-400); RDW Standard Deviation 39.6 fL (36.4-46.3); Red Blood Count 3.82 M/uL (4.20-5.40); White Blood Count 4.36 K/ul (4.8-10.8)
[2023-01-19 06:59] LABS: BUN Creatinine Ratio 22.2 (10-20); Calcium 9.2 mg/dl (8.6-10.3); Est GFR (African American) 76.7 ml/min; Est GFR (Non-African American) 66.2 ml/min; Magnesium 1.9 mg/dl (1.7-2.4)
--- NOTE | 2023-01-19 08:28 | CT Scan Report ---
CT head/brain wo con CLINICAL HISTORY: subdural hematoma Technique: Contiguous axial CT images of the head were acquired from the base of the skull to the carolin sylvain without intravenous contrast administration. Images were viewed in brain, subdural and bone [facility]. Automated dose lowering techniques and/or adjustment according to patient size were utilized for this exam. Comparison: Comparison is made to CT head 01/18/2023 Findings: Thickening of the anterior falx is unchanged from prior exam, measuring approximately 3 mm. Apparent hyperdensity in the base of the anterior right frontal lobe may represent volume averaging, similar t o prior exam. No new hemorrhage is seen. Imaged portions of the paranasal sinuses and mastoid air cells are clear. The orbits appear normal. There are no acute fractures of the calvaria or scalp swelling. Impression: Interval stability of subdural hemorrhage anterior falx without evidence of new hemorrhage. ACT 112: Negative or not required by law. Electronically signed by: Rafita Munson M.D. 01/19/2023 8:25 AM
[2023-01-19] MEDS ORDERED: VENLAFAXINE HCL XR 75 MG CAPXR PO SCH (09:00)
[2023-01-19] MEDS ORDERED: CALCIUM 600MG + VIT D 400 IU TAB PO SCH (09:00)
[2023-01-19] MEDS ORDERED: NON-FORMULARY MEDICATION (Glucosam-Chon-Msm1-C-Mang-Bosw [Osteo Bi-Flex Triple Strength] 7 PO SCH (09:00)
[2023-01-19] MEDS ORDERED: busPIRone 5 MG TAB PO SCH (09:00)
[2023-01-19] MEDS: CITALOPRAM 40 MG TAB PO SCH ×2 (09:12→09:30)
--- NOTE | 2023-01-19 10:19 | Neurology Consultation ---
Date of Consultation January 19, 2023 Assessment & Plan (1) Subdural hematoma, post-traumatic: No indication for further intervention at this time. Recommend follow up w/ outpatient Neurosurgery with plan for repeat CTH in 1-2 weeks. Please repeat CTH STAT for any acute changes in mentation or new focal neurologic deficits. (2) Fall: Recommend PT/OT evaluation to evaluate for gait instability and potential vestibular dysfunction related to fall and head trauma. Telehealth Consultation Telehealth Information Telehealth Information: I performed this visit using a real-time telehealth connection between my location and the patients location ([facility]). After connecting through interactive tele-video, patient was identified by name and date of and/or wristband check.Patient (or authorized healthcare human resources hr representative) was informed that this was a telemedicine visit and it was being conducted confidentially over secure lines. My office door was closed and no one else was present in the room with me.Patient (or authorized healthcare human resources hr representative) provided consent to proceed with the visit, expressed an understanding of privacy and security of the telemedicine visit, and gave permission to have a hospital human resources hr representative in the room in order to assist with the visit and to conduct portions of the visit, as needed. I informed the patient (or authorized healthcare human resources hr representative) that I reviewed their record and presented the opportunity for them to ask any questions regarding the visit today. The patient agreed to participate. History of Present Illness Reason for Consultation: Subdural Hematoma Attending Physician: Robert Bowers MD History of Present Illness Heidi Conrad is a 67 year old woman with pmx as below presenting with fall. Patient recounts descending a row of bleachers and believes she tripped and tumbled down the last three steps, hitting her head. Patient is unclear if she lost consciousness, but would be cleared by the on-field physician but recommended to drive to the ED for a trauma evaluation. Patient presently denies any focal neurologic deficits, and while she does endorse a headache in the top of the head, she feels that this is being well-treated with Tylenol. She has been in her usual state of health, and denies any palpitations, chest pain, dyspnea, or episodes of lightheadedness. At baseline, patient does not rely on a mechanical assist device, though does endorse some balance issues related to chronic knee pain. Allergies Allergy/AdvReac Type Severity Reaction Status Date / Time belladonna alkaloids AdvReac Dilates Verified 01/19/23 00:13 pupils Home Medications Medication Instructions Recorded Confirmed Type buspirone 10 mg tablet 10 mg PO TID 01/19/23 01/19/23 History calcium citrate 315 mg 1 tab PO DAILY 01/19/23 01/19/23 History calcium-vitamin D3 6.25 mcg (250 unit) tablet (Citracal + Vitamin D Maximum) cholecalciferol (vitamin D3) 25 0 mcg PO DAILY 01/19/23 01/19/23 History mcg (1,000 unit) capsule (Vitamin D3) citalopram 40 mg tablet 40 mg PO DAILY 01/19/23 01/19/23 History clobetasol 0.05 % topical foam 1 applic topical DIRECTED PRN 01/19/23 01/19/23 History flare ups glucosamine 750 gh-cxonfqewsnk-[id number] 1 tab PO BID 01/19/23 01/19/23 History no1 644 mg-C 30 mg-rebeka 1 mg tablet (Osteo Bi-Flex Triple Strength) ketoconazole 2 % shampoo 1 applic topical 2XWK 01/19/23 01/19/23 History levothyroxine 88 mcg tablet 88 mcg PO DAILY 01/19/23 01/19/23 History (Synthroid) tacrolimus 0.03 % topical ointment 1 applic topical DIRECTED 01/19/23 01/19/23 History venlafaxine 75 mg capsule,extended 75 mg PO DAILY 01/19/23 01/19/23 History release 24 hr Patient History Medical History Anxiety Depression Hypothyroidism Surgical History Hx of appendectomy Hx of bilateral breast reduction surgery Hx of blepharoplasty Hx of sinus surgery Social History Smoking Status: Never smoker Hx Alcohol Use: Yes Alcohol type: wine Hx Substance Use: No Preferred Language: Khmer Communication Ability: Effective Beliefs That Will Affect Care: None Current Living Situation: Spouse Other Information That Helps Us Care for You: No Feels Safe at Home: Yes Assistive Devices: None Review of Systems ROS negative unless stated in HPI above See HPI for pertinent positives & negatives. All negative aside from those noted in HPI Physical Exam AAOx3. Expressive and receptive language skills intact. Endorses "shaking" sensation on left gaze. No facial droop. Oculomotor function intact. No motor drift. No dysmetria with finger to nose. No subjective paresthesia Results & Data Vital Signs (Past 12 Hours) Vital Signs Temp Pulse Pulse Resp BP BP Pulse Ox 01/19/23 07:30 01/19/23 07:30 36.5 C 63 16 98/70 L 96 01/19/23 07:11 79 01/19/23 06:02 78 19 108/65 97 01/19/23 02:33 62 01/19/23 02:10 96 01/19/23 02:00 95 01/19/23 02:00 108/69 01/19/23 01:50 95 01/19/23 01:43 94 01/19/23 01:30 95 01/19/23 01:30 133/81 01/19/23 01:20 97 01/19/23 01:10 68 17 96 01/19/23 01:00 65 13 96 01/19/23 01:00 117/81 01/19/23 00:52 82 16 95 01/19/23 00:40 71 15 95 01/19/23 00:30 66 17 96 01/19/23 00:30 113/73 01/19/23 00:20 66 14 96 01/19/23 00:10 68 19 95 01/19/23 00:00 60 15 95 01/19/23 00:00 132/73 01/18/23 23:50 65 16 96 01/18/23 23:40 78 20 98 01/18/23 23:30 81 13 94 01/18/23 23:30 129/70 01/18/23 23:20 75 16 96 01/18/23 23:10 73 12 97 01/18/23 23:00 72 16 96 01/18/23 23:00 128/81 01/18/23 22:50 69 15 96 01/18/23 22:40 74 18 98 01/18/23 22:33 69 23 97 01/19/23 00:00 64 20 132/73 97 01/18/23 22:34 75 01/18/23 22:18 36.6 C 70 18 130/80 98 Pulse Ox O2 Del Method O2 Del Method 01/19/23 07:30 96 Room Air 01/19/23 07:30 Room Air 01/19/23 07:11 01/19/23 06:02 Room Air 01/19/23 02:33 01/19/23 02:10 01/19/23 02:00 01/19/23 02:00 01/19/23 01:50 01/19/23 01:43 01/19/23 01:30 01/19/23 01:30 01/19/23 01:20 01/19/23 01:10 01/19/23 01:00 01/19/23 01:00 01/19/23 00:52 01/19/23 00:40 01/19/23 00:30 01/19/23 00:30 01/19/23 00:20 01/19/23 00:10 01/19/23 00:00 01/19/23 00:00 01/18/23 23:50 01/18/23 23:40 01/18/23 23:30 01/18/23 23:30 01/18/23 23:20 01/18/23 23:10 01/18/23 23:00 01/18/23 23:00 01/18/23 22:50 01/18/23 22:40 01/18/23 22:33 01/19/23 00:00 Room Air 01/18/23 22:34 01/18/23 22:18 Room Air Diagnostic Findings Per my personal review, serial CT Head studies show a trace area of hyperintensity along the anterior falx, potentially representing subdural hematoma. In the context of clinical picture, traumatic SDH cannot be entirely ruled out.
--- NOTE | 2023-01-19 10:55 | Discharge Summary ---
Date of Service January 19, 2023 Admission HPI Per Admitting Provider 67-year-old female with past medical significant for hypothyroidism, osteoarthritis, depression and anxiety and sleep apnea and uses dental device visiting [place] for football match comes because of fall and found to have subdural hematoma. It seems it was wet and she slipped on the steps hit the rail and seem to hit concrete the back of the head.Patient thinks probably she might lost conscious for 2 to 3 seconds. She was able to walk in the parking lot and drove here. The headache is coming back. No blurred visions. No dizziness. No nausea vomiting. No cough. No recent fevers. Has right lo wer rib pains. No shortness of breath. No abdominal pain. Normal bowel and bladder movements. Past medical history as mentioned above. Past surgical history. Sinus surgery. Chin lift surgery. Breast reduction surgery. Appendectomy, knee gel shots for osteoarthritis, and spinal shots. Social history. . No smoking. Alcohol occasional. Family history. Mother and father had high blood pressure high cholesterol and diabetes. Mother of lung cancer. Father had heart disease Admission Exam Per Admitting Provider General- Not in distress. Head- atraumatic Eyes- PERRL. ENT- oropharynx clear Neck- supple, no JVD, Lungs- clear to auscultation no wheezing or crackles Heart- regular rhythm; no murmur, no gallop, Abdomen- normal bowel sounds, soft, nontender, no distension. Extremities- no pretibial edema, no erythema Neuro- alert, oriented x 3; PERRL, EOMI; no facial palsy; no dysarthria; motor 5/5 bilaterally; Skin- warm & dry Principal Diagnosis Fall, subdural hematoma Discharge Exam General- WD/WN F in NAD Head- atraumatic Eyes- PERRL. ENT- oropharynx clear Neck- supple, no JVD, Lungs- clear to auscultation no wheezing or crackles Heart- regular rhythm; no murmur, no gallop, Abdomen- normal bowel sounds, soft, nontender, no distension. Extremities- no pretibial edema, no erythema Neuro- alert, oriented x 3; PERRL, EOMI; no facial palsy; no dysarthria; motor 5/5 bilaterally;moves extremities Skin- warm & dry Discharge Data Allergies Allergy/AdvReac Type Severity Reaction Status Date / Time belladonna alkaloids AdvReac Dilates Verified 01/19/23 00:13 pupils Consultations 01/18/23 22:53 ED Decision to Admit Stat 01/19/23 00:23 ED Decision to Admit Stat 01/19/23 08:00 Consult Neurology Routine Ordered Studies 01/18/23 19:34 CT cervical spine wo con Stat FINDINGS: The vertebral body heights are maintained. The craniocervical junction is intact. The atlanto-dens interval is maintained. The dens is intact. There is no spondylolisthesis. Multilevel cervical spondylosis and degenerative disc disease. Straightening of the cervical lordosis. The unenhanced neck soft tissues are grossly unremarkable. The visualized lung apices are grossly clear. IMPRESSION: No acute fracture or subluxation of the cervical spine. CT head/brain wo con Stat FINDINGS: Trace subdural blood along the anterior falx, measuring approximately 3 mm. The territorial josé-white matter differentiation is maintained throughout. Age-related cerebral volume loss. Periventricular and subcortical white matter hypoattenuation, consistent with chronic microangiopathy. The visualized orbits appear grossly unremarkable. The calvarium is intact. The visualized paranasal sinuses and mastoid air cells are grossly clear. IMPRESSION: Trace subdural blood along the anterior falx, measuring approximately 3 mm. 01/18/23 20:14 CT chest diagnostic wo con Stat COMPARISON: No relevant prior studies available. FINDINGS: Lungs: Unremarkable. No mass. No consolidation. Pleural space: Unremarkable. No pneumothorax. No significant effusion. Heart: Unremarkable. No cardiomegaly. No significant pericardial effusion. No significant coronary artery calcifications. Bones/joints: Unremarkable. No acute fracture. No dislocation. Soft tissues: Unremarkable. Vasculature: Unremarkable. No thoracic aortic aneurysm. Lymph nodes: Unremarkable. No enlarged lymph nodes. Other findings: Nonobstructed calculi in the LEFT upper pole, partially included in the [id number]. IMPRESSION: No acute findings in the chest. 01/19/23 08:00 CT head/brain wo con Urgent Findings: Thickening of the anterior falx is unchanged from prior exam, measuring approximately 3 mm. Apparent hyperdensity in the base of the anterior right frontal lobe may represent volume averaging, similar to prior exam. No new hemorrhage is seen. Imaged portions of the paranasal sinuses and mastoid air cells are clear. The orbits appear normal. There are no acute fractures of the calvaria or scalp swelling. Impression: Interval stability of subdural hemorrhage anterior falx without evidence of new hemorrhage. Hospital Course (1) Subdural hematoma: 67-year-old female with past medical significant for hypothyroidism, osteoarthritis, depression and anxiety sleep apnea and uses dental device visiting [place] for football match comes because of fall and found to have subdural hematoma. Fall Subdural hematoma CT head: Trace subdural blood along the anterior falx, measuring approximately 3 mm. ER spoke with neurosurgery at [facility] and also trauma center [facility] and and finally decided to be observed here Repeated CT head this a.m. - unchanged/ stable, no progression Not on anticoagulations [facility] recommended Keppra 500 twice daily for 1 week but patient want to wait until repeat CT head. Monitor in telemetry floor 01/19 - Pt reports having headache, however otherwise denies any complaints. No blurry vision, no change in speech, swallowing, no numbness or weakness. Discussed images w/ [place] [facility] - neurology, neurosurgery, trauma - given stable findings, pt can be discharged home. History of anxiety depression Continue home medication Hypothyroidism On Synthyroid Total Time Total Time Spent Total Time Spent (In Minutes): 40 Discharge Plan Discharge Items Patient Disposition: Home - Self-Care Reason For Visit: FALL, SUBDURAL HEMATOMA Discharge Diagnosis: Fall, subdural hematoma Condition on Discharge: Good Activity: Per Instructions section Non-emergency contact: Primary Care Provider Call non-emergency contact if: you have any medication questions and your symptoms worsen Follow-up/Referrals: PCP,NO [Primary Care Provider] - Diet: Regular Addtl Attending Provider Instructions: Follow up with your primary care physician within 1 week. If you develop any new symptoms or worsening headache, make sure to get evaluated at emergency department. Pending Studies at Discharge: No Stand-Alone Forms: My [employer], Smoking Cessation Medications and DC Order Prescriptions: Continued venlafaxine 75 mg capsule,extended release 24hr 75 mg PO DAILY ketoconazole 2 % shampoo 1 applic TOPICAL 2XWK citalopram 40 mg tablet 40 mg PO DAILY levothyroxine [Synthroid] 88 mcg tablet 88 mcg PO DAILY buspirone 10 mg tablet 10 mg PO TID clobetasol 0.05 % foam 1 applic TOPICAL DIRECTED PRN (Reason: flare ups) tacrolimus 0.03 % ointment 1 applic TOPICAL DIRECTED cholecalciferol (vitamin D3) [Vitamin D3] 25 mcg (1,000 unit) Capsule 0 mcg PO DAILY calcium citrate-vitamin D3 [Citracal + D Maximum] 315 mg-6.25 mcg (250 unit) Tablet 1 tab PO DAILY Osteo Bi-Flex Triple Strength 750 mg-644 mg- 30 mg-1 mg Tablet 1 tab PO BID Discharge Orders: Discharge Order (Routine); Ordered 01/19/23 Ordered By: Robert Bowers Admission Data Admit Date/Time: 01/19/23 01:39 Attending Provider: Robert Bowers Admit Provider: Alen Davis Primary Care Provider: PCP,NO Other Providers: Fco Schilling ; Alen Davis ; Nasreen Matthews ; Chip Best ; Nasreen Morin ; Wesley Bell ; Pawel Nuñez ; Luis Fernando Carroll ; Flako Lane ; Kerline Schmidt ; Enrrique Soriano ; Vishnu Ross ; Erica Weber ; Juvenal Alcantara ; Diane Palma ; Hugh [place]
[2023-01-19] MEDS ORDERED: CITALOPRAM 40 MG TAB PO SCH (16:00)
== END 2023-01-19 11:45 | disposition home or self-care (01) ==
LOC: ED 18:58 → INTOOBSV 01-19 01:39 → EDINP 01-19 01:39
DX: R07.81 Pleurodynia; W10.9XXA Fall (on) (from) unspecified stairs and steps, initial encounter; Z79.899 Other long term (current) drug therapy; S06.5XAA Traumatic subdural hemorrhage with loss of consciousness status unknown, initial encounter; Z79.890 Hormone replacement therapy; W01.198A Fall on same level from slipping, tripping and stumbling with subsequent striking against other object, initial encounter; Z88.8 Allergy status to other drugs, medicaments and biological substances